=== PATIENT | male | born 1955 | race Caucasian/White ===

== ENCOUNTER 2018-06-24 12:47 | Day surgery (SDC) | payer OTHER ==
[~2018-06-24] VITALS: Ht 182.9 cm; Wt 86.2 kg
[~2018-06-24 12:47] MED LIST: ASPIR-LOW81 MG PO; METOPROLOL SUCC25 MG PO; PILOCARPINE HCL5 MG PO
--- NOTE | 2018-06-24 14:38 | NUR ---
06/24/18 1438 Eva Soto 1432 PT ARRIVED IN PACU SLEEPY WITH NO C/O'S. ABD SOFT AND PASSING FLATUS.
--- NOTE | 2018-06-25 15:31 | OR ---
[facility] [address], [place] [address] Signed DATE OF OPERATION: 06/24/2018 SURGEON: Thuy Soria MD PREOPERATIVE DIAGNOSES: 1. Initial colon screening. 2. Atrial fibrillation. POSTOPERATIVE DIAGNOSIS: Pedunculated polyps x2 (30 cm and 20 cm). PROCEDURE PERFORMED: Total colonoscopy to cecum with cold snare polypectomy x2. ANESTHESIA: Intravenous sedation, fentanyl 100 mcg, Versed 5 mg. INDICATION: This 63-year-old white man is a patient of Mihaela Levy PA-C. He has underlying atrial fibrillation for which he is managed only with aspirin and no formal anticoagulation. He has never undergone colonoscopy and has been recommended to have screening colonoscopy. The risks of bleeding, infection, perforation, and other unforeseen complications were reviewed with him. He wishes to proceed with screening colonoscopy. FINDINGS: The prep was excellent. Complete colonoscopy was undertaken to the cecum without question. His heart rate during the procedure was in the 90s mostly with atrial fibrillation as the underlying rhythm. The prep was quite good. He had two polyps, both of them small, pedunculated polyps about 8 mm in size, one at 30 cm, the other at 20, both were excised with cold snare polypectomy technique. Both retrieved for pathology. The remaining colon and rectum were normal. DESCRIPTION OF PROCEDURE: The patient was brought to the endoscopy suite and placed in lateral decubitus position, given intravenous sedation to a point of slurred speech and nystagmus. Digital rectal examination was normal. Full cardiopulmonary monitoring was maintained. Electronically Signed By: THUY SORIA MD 06/25/18 1531 PATIENT NAME: LIA ROJO OPERATIVE REPORT DATE OF : 51 REPORT #: [id number] PHYSICIAN: THUY SORIA MD PCP: MIHAELA LEVY PAC REPORT IS CONFIDENTIAL AND NOT TO BE RELEASED WITHOUT AUTHORIZATION [facility] [address], [place] [address] Signed An Olympus video colonoscope was passed in the rectum and manipulated throughout the colon noting a polyp at about 20 cm, but passing on ultimately to the cecum. The ileocecal valve and appendiceal orifice were normal. Scope was withdrawn from that point. Examination throughout showed no sign of abnormality until 30 cm from the anal verge, where a somewhat pedunculated polyp was noted. This was excised with cold snare polypectomy technique without problem. The specimen was passed for pathology. The scope was withdrawn at 20 cm with another similar such polyp also excised in the same way. It was retrieved through the trap. The scope was further withdrawn. Retroflexed view in the rectum was found to be normal. Scope was straightened, withdrawn, and removed. The patient was taken to recovery room in good condition. CONCLUDING DIAGNOSIS: Polyps x2, otherwise normal. PLAN: Recommend repeat colonoscopy in 3 years, sooner if clinically indicated. If polyps prove to be hypoplastic, can go 5-10 years. MD RACHEL Macias/ADELA /[id number] cc: Mihaela Levy PA-C Copies: MIHAELA LEVY ~ Electronically Signed By: THUY SORIA MD 06/25/18 1531 PATIENT NAME: POPPY RAMONALIA Boles INGE OPERATIVE REPORT DATE OF : 51 REPORT #: [id number] PHYSICIAN: THUY SORIA MD PCP: MIHAELA LEVY PAC REPORT IS CONFIDENTIAL AND NOT TO BE RELEASED WITHOUT AUTHORIZATION
== END 2018-06-24 15:05 | disposition home or self-care (01) ==
LOC: DS 12:47 → OPS 12:47 → DS 14:00 → OPS 15:05
PROVIDERS: Surgery
PROC: 0DBE8ZZ Excision of Large Intestine, Via Natural or Artificial Opening Endoscopic (ICD-10-PCS; principal; 2018-06-24 14:00)
DX: Z12.11 Encounter for screening for malignant neoplasm of colon (principal); D12.6 Benign neoplasm of colon, unspecified; I48.91 Unspecified atrial fibrillation; Z79.899 Other long term (current) drug therapy; Z79.82 Long term (current) use of aspirin
CPT/HCPCS: 99153; G0500; J2250; J3010; J7120

== ENCOUNTER 2022-06-19 12:00 | Day surgery (SDC) | payer MEDICARE ==
[~2022-06-19] VITALS: Ht 182.9 cm; Wt 87.3 kg
--- NOTE | 2022-06-19 13:51 | NUR ---
06/19/22 1351 Kelley Moser 1344 PATIENT ARRIVES TO PACU AWAKE BUT DROWSY. DENIES PAIN OR NAUSEA. REPOSITIONS SELF TO POSITION OF COMFORT. RESP EVEN AND UNLABORED, ROOM AIR SATS >94%. 1351 HOB ELEVATED. PATIENT SITTING UP DRINKING APPLE JUICE.
--- NOTE | 2022-06-22 08:29 | OR ---
[facility] [address] [place], [place] [address] Signed DATE OF OPERATION: 06/19/2022 SURGEON: Thuy Soria MD PREOPERATIVE DIAGNOSIS: History of tubular adenoma at 30 cm and 20 cm in 2019. POSTOPERATIVE DIAGNOSIS: Polyps x6. PROCEDURES: Total colonoscopy to cecum with cold snare polypectomy x3 and cold morcellation polypectomy x3. ANESTHESIA: Intravenous sedation, fentanyl 100 mcg and Versed 4 mg. INDICATIONS: This 67-year-old white man is a patient of PEPE Kebede. He underwent colonoscopy by me in 2019, at which time he was found to have two tubular adenomas at 30 and 20 cm. He is here for surveillance colonoscopy. He understands risk of bleeding, infection, and perforation related to colonoscopy and wished to proceed. Notably, he has no family history of colon cancer and no symptoms of the colon. FINDINGS: The prep was excellent. Complete colonoscopy was undertaken. The cecum without question. He had six polyps in total, all excised completely. Two were in the right transverse, another in the mid transverse and another at the proximal descending colon, another in the sigmoid and another in the distal sigmoid. DESCRIPTION OF PROCEDURE: The patient was brought to the endoscopy suite and placed in lateral decubitus position given intravenous sedation to the point of slurred speech and nystagmus. Digital rectal examination was undertaken, which showed a relatively symmetric, but somewhat enlarged prostate. An Olympus video colonoscope was passed into the rectum and manipulated throughout the colon, ultimately intubating the cecum itself. The prep was quite remarkably good. The scope was withdrawn from that point and examination undertaken. In the right transverse colon, there were two small polyps that were not far from each other. Both were excised Electronically Signed By: THUY SORIA MD 06/22/22 0829 PATIENT NAME: LIA ROJO OPERATIVE REPORT DATE OF : 51 REPORT #: [id number] PHYSICIAN: THUY SORIA MD PCP: TORRIE LEVY PAC REPORT IS CONFIDENTIAL AND NOT TO BE RELEASED WITHOUT AUTHORIZATION [facility] [address] [place], [place] [address] Signed with cold morcellation technique. The scope was further withdrawn. In the mid transverse colon, there was another small polyp, this was excised with cold snare technique with good hemostatic effect. The scope was withdrawn further and a small polyp in the proximal descending colon was noted. It was excised with cold snare technique as well. Further withdrawal identified diverticular changes. There was another polyp in the proximal sigmoid and another in the mid sigmoid, both excised with morcellation and cold snare technique. The scope was withdrawn. Retroflexed view was undertaken, which was normal. The scope was removed. The patient taken to the recovery room in good condition. CONCLUDING DIAGNOSIS: Polyps x6, minimal diverticula and mild prostatic enlargement. PLAN: We would recommend repeat colonoscopy in three years. We will obtain a PSA test at this time. Postoperatively, the patient notes he has not had a PSA test to his knowledge nor any rectal exam in quite some time. Although, the findings are not striking. Baseline PSA would be appropriate under the circumstances. He will return to the ongoing care of Torrie Levy currently. MD RACHEL Macias/MODL /[id number] cc: Torrie Levy PA-C Copies: TORRIE LEVY ~ Electronically Signed By: THUY SORIA MD 06/22/22 0829 PATIENT NAME: LIA ROJO OPERATIVE REPORT DATE OF : 51 REPORT #: [id number] PHYSICIAN: THUY SORIA MD PCP: TORRIE LEVY REPORT IS CONFIDENTIAL AND NOT TO BE RELEASED WITHOUT AUTHORIZATION
--- NOTE | 2022-06-27 17:14 | PATH ---
[facility] [address] [place], [place] [address] Signed SPECIMEN(S): A RT TRANSVERSE COLON POLYPS SPECIMEN(S): B TRANSVERSE COLON POLYPS SPECIMEN(S): C COLON POLYPS AT 80CM SPECIMEN(S): D COLON POLYPS AT 40CM SPECIMEN(S): E COLON POLYP AT 20CM SPECIMEN SOURCE: A. RT TRANSVERSE COLON POLYPS B. TRANSVERSE COLON POLYPS C. COLON POLYPS AT 80CM D. COLON POLYPS AT 40CM E. COLON POLYP AT 20CM CLINICAL HISTORY: Personal history of colon polyp. Postop: Diverticulosis, colon polyps x 6. FINAL PATHOLOGIC DIAGNOSIS: A. Colon, right transverse, polypectomy: - Multiple fragments of tubular adenoma. - There is no evidence of high-grade dysplasia or malignancy. B. Colon, transverse, polypectomy: - Multiple fragments of tubular adenoma. - There is no evidence of high-grade dysplasia or malignancy. C. Colon, 80 cm, polypectomy: - Tubular adenoma, one fragment. - An additional fragment of colonic epithelium demonstrates a benign intramucosal lymphoid nodule. - There is no evidence of high-grade dysplasia or malignancy. D. Colon, 40 cm, polypectomy: - Benign colonic mucosa with prominent intramucosal lymphoid aggregates. - No evidence of neoplasia. E. Colon, 20 cm, polypectomy: - Tubular adenoma. - There is no evidence of high-grade dysplasia or malignancy. COMMENT: Regarding specimen D, examination of sections from three different levels of the tissue block discloses the presence of benign intramucosal lymphoid aggregates. Intramucosal lymphoid aggregates can sometimes appear as polyps endoscopically. They have no clinical significance. There is no evidence of dysplasia or malignancy. PATIENT NAME: LIA ROJO PATHOLOGY DATE OF : 51 REPORT #: [id number] PHYSICIAN: [facility] PCP: MIHAELA MARINELLI PAC REPORT IS CONFIDENTIAL AND NOT TO BE RELEASED WITHOUT AUTHORIZATION [facility] [address] [place], [place] [address] Signed TWK:[facility]:C2NR MICROSCOPIC EXAMINATION: Histologic sections of all submitted blocks are examined by light microscopy. These findings, together with the gross examination, support the pathologic diagnosis. GROSS DESCRIPTION: A. The specimen, labeled and designated "Lisa, transverse polypectomy, right," is received in formalin and consists of five patel soft tissue fragments, ranging from 0.2-0.3 cm. Entirely submitted in (A1). B. The specimen, labeled and designated "Lisa, transverse polypectomy," is received in formalin and consists of four patel soft tissue fragments, ranging from 0.1-0.2 cm. Entirely submitted in (B1). C. The specimen, labeled and designated "Lisa, polypectomy at 80 cm," is received in formalin and consists of two patel soft tissue fragments, ranging from 0.1-0.2 cm. Entirely submitted in (C1). D. The specimen, labeled and designated "Lisa, colon polypectomy at 40 cm," is received in formalin and consists of three patel soft tissue fragments, ranging from 0.1-0.2 cm. Entirely submitted in (D1). E. The specimen, labeled and designated "Lisa, colon polypectomy at 20 cm," is received in formalin and consists of one patel soft tissue fragment, 0.3 cm. Entirely submitted in (E1). AC (under the direct supervision of a pathologist) The Gross Description was prepared using a voice recognition system. The report was reviewed for accuracy; however, sound-alike word errors, addition and/or deletions may occur. If there is any question about this report, please contact Client Services. PERFORMING LABORATORY: The technical component was performed by [facility], [address] [place] [id number] (CLIA# [id number]). The professional interpretation was performed by [facility], [facility], [address] [place] [place] [address] (CLIA#: [id number]). Diagnostician: Marcel Allen MD Pathologist Electronically Signed 06/27/2022 PATIENT NAME: LIA ROJO PATHOLOGY DATE OF : 51 REPORT #: [id number] PHYSICIAN: CATARINO VARELA PCP: MIHAELA MARINELLI PAC REPORT IS CONFIDENTIAL AND NOT TO BE RELEASED WITHOUT AUTHORIZATION [facility] [address] [place] [address] [place] [address] Signed Copies: ~ PATIENT NAME: LIA ROJO PATHOLOGY DATE OF : 51 REPORT #: [id number] PHYSICIAN: CATARINO VARELA PCP: MIHAELA MARINELLI PAC REPORT IS CONFIDENTIAL AND NOT TO BE RELEASED WITHOUT AUTHORIZATION
== END 2022-06-19 14:25 | disposition home or self-care (01) ==
LOC: OPS 12:00 → DS 12:10 → OPS 13:00
PROVIDERS: ATTEND Surgery
PROC: 0DBL8ZX Excision of Transverse Colon, Via Natural or Artificial Opening Endoscopic, Diagnostic (ICD-10-PCS; 2022-06-19)
PROC: 0DBN8ZX Excision of Sigmoid Colon, Via Natural or Artificial Opening Endoscopic, Diagnostic (ICD-10-PCS; 2022-06-19)
PROC: 0DBM8ZX Excision of Descending Colon, Via Natural or Artificial Opening Endoscopic, Diagnostic (ICD-10-PCS; principal; 2022-06-19 13:00)
DX: Z12.11 Encounter for screening for malignant neoplasm of colon (principal); Z86.010 Personal history of colon polyps; D12.6 Benign neoplasm of colon, unspecified; K57.30 Diverticulosis of large intestine without perforation or abscess without bleeding; N40.0 Benign prostatic hyperplasia without lower urinary tract symptoms
CPT/HCPCS: 36415; 84153; 88305; 99153; G0500; J2250; J3010; J7121